=== PATIENT | female | born 1960 | race African-American/Black ===

== ENCOUNTER 2021-07-26 12:56 | Emergency (ER) | payer OTHER ==
[~2021-07-26] VITALS: Ht 170.2 cm; Wt 100.2 kg
[2021-07-26] MEDS ORDERED: SYNTHROID75 MCG PO (13:23)
== END 2021-07-26 15:46 | disposition home or self-care (01) ==
LOC: ER 12:56
DX: B34.9 Viral infection, unspecified (principal); Z11.52 Encounter for screening for COVID-19

== ENCOUNTER 2023-05-09 16:06 | Emergency (ER) | payer OTHER ==
[~2023-05-09] VITALS: Ht 165.1 cm; Wt 95.3 kg
[~2023-05-09 16:06] MED LIST: SYNTHROID75 MCG PO
[2023-05-09 17:41] LABS: HEMOGLOBIN 13.2 g/dL (12.0-15.00); MEAN CELL VOLUME 91.2 fL (80.00-100.00); MEAN CORPUSCULAR HEMOGLOBIN 30.9 pg (27.00-32.0); MEAN CORPUSCULAR HGB CONC 33.9 g/dl (32.0-36.0); PLATELET COUNT 191 K/uL (150-450); RED BLOOD COUNT 4.28 M/uL (4.00-6.00); RED CELL DISTRIBUTION WIDTH 13.6 % (11.5-14.5)
[2023-05-09 17:52] LABS: PH,URINE 7.5 (5.0-8.0); URINE APPEARANCE Clear; URINE BILIRRUBIN Negative (NEGATIVE); URINE BLOOD Small; URINE COLOR Yellow; URINE GLUCOSE Negative (NEGATIVE); URINE LEUKOCYTE Negative; URINE NITRATE Negative; URINE PROTEIN Negative (NEGATIVE)
[2023-05-09 17:56] LABS: URINE BACTERIA 32.7 uL (0.0-1933); URINE EPITHELIAL CELLS 1.6 uL (0.0-38.8); URINE RBC 8.3 uL (0.0-20.8)
[2023-05-09 17:59] LABS: ALBUMIN 3.4 gm/dL (3.4-5.0); BILIRUBIN TOTAL 0.72 mg/dL (0.3-1.2); CALCIUM 8.5 mg/dL (8.5-10.1); CREATININE SERUM 0.78 mg/dL (0.55-1.02); GFR 74.35; GLOBULINA 4.3 G/DL (2.4-3.5); POTASSIUM 3.58 mEq/L (3.5-5.1); TOTAL PROTEIN 7.7 gm/dL (6.4-8.2)
[2023-05-09 18:02] LABS: URINE WBC 0.9 uL (0.0-23.2)
[2023-05-09] MEDS ORDERED: DICLOFENAC POTA50 MG PO (19:32)
[2023-05-09] MEDS ORDERED: CYCLOBENZAPRINE10 MG PO (19:32)
== END 2023-05-09 19:46 | disposition home or self-care (01) ==
LOC: ER 16:06
PROVIDERS: General Practice
DX: M54.9 Dorsalgia, unspecified (principal); M51.36 Other intervertebral disc degeneration, lumbar region; I10 Essential (primary) hypertension; E11.9 Type 2 diabetes mellitus without complications; Z88.0 Allergy status to penicillin